=== PATIENT | male | born 1985 | race Caucasian/White ===

== ENCOUNTER 2019-05-16 17:07 | Emergency (ER) | payer OTHER ==
[~2019-05-16] VITALS: Ht 188 cm; Wt 99.8 kg
--- NOTE | 2019-05-16 17:11 | NUR ---
ED Nurse Note: pt not in wr
--- NOTE | 2019-05-16 17:20 | NUR ---
ED Nurse Note: pt walked in to ER from home due to difficulty to breath. pt aao x4 and ambulatory. skin clean and intact. mild anxiousness noted but following commands and no combative behavior noted. no acute distress noted but tachycardia noted. pt is in gown and on secured entrance monitor. pt denied taking drug or drinking alcohol.
[2019-05-16 17:26] VITALS: BP 117/57
--- NOTE | 2019-05-16 17:42 | NUR ---
ED Nurse Note: ERPA at bedside.
--- NOTE | 2019-05-16 17:56 | NUR ---
ED Nurse Note: x-ray at bedside.
--- NOTE | 2019-05-16 18:01 | Emergency Room Report ---
History of Present Illness General Chief Complaint: Upper Respiratory Illness Source: Patient Present Illness HPI 33-year-old male presents to the emergency department complaining of shortness of breath, intermittent 5/10 in severity chest pain and cough with sputum production x2 days. Patient denies fevers or chills. Patient denies significant past medical history. Patient denies recent travel but he does report some ill contacts. Patient reports that he recently got over having upper respiratory infection. Patient reports taking deep breaths on occasion will aggravate his symptoms. He is also reporting dizziness at this time. He denies palpitations. He reports sore throat 5/10 in severity. Denies any other associated symptoms. He denies hx of illicit drug use. Allergies: Coded Allergies: No Known Allergies (Unverified , 05/16/19) Patient History Past Medical History: see triage record Past Surgical History: none Pertinent Family History: none Reviewed Nursing Documentation: PMH: Agreed; PSxH: Agreed Nursing Documentation-PMH Past Medical History: No History, Except For Review of Systems All Other Systems: negative except mentioned in HPI Physical Exam Vital Signs Date Time Temp Pulse Resp B/P (MAP) Pulse Ox O2 Delivery O2 Flow Rate FiO2 05/16/19 17:16 97.3 128 22 136/89 (105) 98 Room Air Sp02 EP Interpretation: reviewed, normal General Appearance: alert, GCS 15, non-toxic, mild distress Head: normocephalic, atraumatic Eyes: bilateral eye normal inspection, bilateral eye PERRL ENT: hearing grossly normal, normal pharynx, normal voice, uvula midline, moist mucus membranes Neck: full range of motion Respiratory: chest non-tender, lungs clear, normal breath sounds, no respiratory distress, no accessory muscle use, no wheezing, speaking full sentences Cardiovascular #1: regular rate, rhythm, no edema, tachycardia Gastrointestinal: non tender, soft Musculoskeletal: back normal, normal range of motion, gait/station normal, non- tender Neurologic: alert, motor strength/tone normal, oriented x3, sensory intact, responsive, speech normal Psychiatric: judgement/insight normal, anxious Skin: normal color, diaphoresis Medical Decision Making PA Attestation Dr. Zarate is my supervising Physician whom patient management has been discussed with. Diagnostic Impression: Primary Impression: Dyspnea Qualified Codes: R06.00 - Dyspnea, unspecified Additional Impression: Tachycardia ER Course 33-year-old male presents to the emergency department complaining of shortness of breath, intermittent chest pain and cough with sputum production x2 days. Patient denies fevers or chills. Patient denies significant past medical history. Patient denies recent travel but he does report some ill contacts. Patient reports that he recently got over having upper respiratory infection. Patient reports taking deep breaths on occasion will aggravate his symptoms. He is also reporting dizziness at this time. He denies palpitations. He reports sore throat 5/10 in severity. Denies any other associated symptoms. Ddx considered but are not limited to [place], pneumonia, contusion, costochondritis , PE, ACS, Shoulder strain, Chest wall contusion. aortic dissection. Vital signs: Tachycardia otherwise remaining VS are WNL, pt. is afebrile H&PE are most consistent with possible anxiety attack, due to abnormal VS and pt. anxious appearance will r/o NJ/PE ORDERS: - EK Sinus tach. No ST changes -CBC: WNL -CMP: WNL -Troponin: WNL - D-Dimer: WNL - CXR: WNL ED INTERVENTIONS: - PT. placed on cardiac monitoring. -Ativan 0.5 IV re-assessment pt. reports his symptoms have resolved. NAD, non-toxic in appearance. Pt. stable for d/c, He is given strict ED return precautions and he verbalizes his understanding and agreement. DISCHARGE: At this time pt. is stable for d/c to home. Will provide printed patient care instructions, and any necessary prescriptions. Care plan and follow up instructions have been discussed with the patient prior to discharge. Labs Test 05/16/19 18:00 White Blood Count 8.0 K/UL (4.8-10.8) Red Blood Count 5.78 M/UL (4.70-6.10) Hemoglobin 16.7 G/DL (14.2-18.0) Hematocrit 47.1 % (42.0-52.0) Mean Corpuscular Volume 81 FL (80-99) Mean Corpuscular Hemoglobin 28.8 PG (27.0-31.0) Mean Corpuscular Hemoglobin Concent 35.3 G/DL (32.0-36.0) Red Cell Distribution Width 10.7 % (11.6-14.8) Platelet Count 296 K/UL (150-450) Mean Platelet Volume 5.4 FL (6.5-10.1) Neutrophils (%) (Auto) 54.3 % (45.0-75.0) Lymphocytes (%) (Auto) 34.7 % (20.0-45.0) Monocytes (%) (Auto) 6.7 % (1.0-10.0) Eosinophils (%) (Auto) 2.9 % (0.0-3.0) Basophils (%) (Auto) 1.3 % (0.0-2.0) D-Dimer < 0.19 mg/L FEU Sodium Level 138 MMOL/L (136-145) Potassium Level 3.2 MMOL/L (3.5-5.1) Chloride Level 102 MMOL/L (98-107) Carbon Dioxide Level 31 MMOL/L (21-32) Anion Gap 5 mmol/L (5-15) Blood Urea Nitrogen 12 mg/dL (7-18) Creatinine 1.1 MG/DL (0.55-1.30) Estimat Glomerular Filtration Rate > 60 mL/min (>60) Glucose Level 118 MG/DL (74-106) Calcium Level 9.0 MG/DL (8.5-10.1) Total Bilirubin 0.6 MG/DL (0.2-1.0) Aspartate Amino Transf (AST/SGOT) 21 U/L (15-37) Alanine Aminotransferase (ALT/SGPT) 41 U/L (12-78) Alkaline Phosphatase 53 U/L (46-116) Troponin I 0.001 ng/mL (0.000-0.056) Total Protein 8.2 G/DL (6.4-8.2) Albumin 4.4 G/DL (3.4-5.0) Globulin 3.8 g/dL Albumin/Globulin Ratio 1.2 (1.0-2.7) Urine Opiates Screen Negative (NEGATIVE) Urine Barbiturates Screen Negative (NEGATIVE) Phencyclidine (PCP) Screen Negative (NEGATIVE) Urine Amphetamines Screen Negative (NEGATIVE) Urine Benzodiazepines Screen Negative (NEGATIVE) Urine Cocaine Screen Negative (NEGATIVE) Urine Marijuana (THC) Screen Negative (NEGATIVE) Last Vital Signs Date Time Temp Pulse Resp B/P (MAP) Pulse Ox O2 Delivery O2 Flow Rate FiO2 05/16/19 17:26 97.3 128 22 117/57 98 Room Air Status: improved Disposition: HOME, SELF-CARE Condition: Stable Scripts No Active Prescriptions or Reported Meds Referrals: NOT CHOSEN IPA/MD,REFERRING (PCP) Patient Instructions: Generalized Anxiety Disorder Additional Instructions: Take medications as directed. Follow up with a Primary Care Provider in 3-5 days, even if your symptoms have resolved. Return sooner to ED if new symptoms occur, or current symptoms become worse. - Please note that this Emergency Department Report was dictated using [employer] technology software, occasionally this can lead to erroneous entry secondary to interpretation by the dictation equipment. Oralia Carter May 16, 2019 18:01
--- NOTE | 2019-05-16 18:01 | NUR ---
ED Nurse Note: blood work sent to lab.
[2019-05-16 18:21] LABS: BASOPHILS % (AUTO) 1.3 % (0.0-2.0); EOSINOPHILS % (AUTO) 2.9 % (0.0-3.0); HEMATOCRIT 47.1 % (42.0-52.0); HEMOGLOBIN 16.7 G/DL (14.2-18.0); LYMPHOCYTES % (AUTO) 34.7 % (20.0-45.0); MEAN CORPUSCULAR VOLUME 81 FL (80-99); MONOCYTES % (AUTO) 6.7 % (1.0-10.0); NEUTROPHILS % (AUTO) 54.3 % (45.0-75.0); PLATELET COUNT 296 K/UL (150-450); RED BLOOD COUNT 5.78 M/UL (4.70-6.10); RED CELL DISTRIBUTION WIDTH 10.7 % (11.6-14.8)
[2019-05-16 18:33] LABS: ANION GAP 5 mmol/L (5-15); BLOOD UREA NITROGEN 12 mg/dL (7-18); CARBON DIOXIDE 31 MMOL/L (21-32); CHLORIDE 102 MMOL/L (98-107); CREATININE 1.1 MG/DL (0.55-1.30); POTASSIUM 3.2 MMOL/L (3.5-5.1); SODIUM 138 MMOL/L (136-145)
[2019-05-16 18:38] LABS: ALANINE AMINOTRANSFERASE 41 U/L (12-78); ALBUMIN 4.4 G/DL (3.4-5.0); ALBUMIN/GLOBULIN RATIO 1.2 (1.0-2.7); ALKALINE PHOSPHATASE 53 U/L (46-116); ASPARTATE AMINO TRANSFERASE 21 U/L (15-37); BILIRUBIN,TOTAL 0.6 MG/DL (0.2-1.0)
--- NOTE | 2019-05-16 18:44 | Diagnostic Imaging Report ---
Indication: Cough Technique: One view of the chest Comparison: Findings: Lungs and pleural spaces are clear. Heart size is normal. No significant interim change Impression: No acute process This agrees with the preliminary interpretation provided overnight by [facility] service.
--- NOTE | 2019-05-16 18:56 | NUR ---
HAND-OFF: Report given to CHRISTOPHER Silverio.
--- NOTE | 2019-05-16 18:57 | NUR ---
ED Nurse Note: Report received from CHRISTOPHER Wade. pt in bed, no acute distress is noted.
[2019-05-16] MEDS ORDERED: LORazepam Inj 2mg/ml 1ml IV ONE (19:30)
[2019-05-16 20:13] VITALS: BP 110/64
--- NOTE | 2019-05-16 20:13 | NUR ---
ER DISCHARGE NOTE: Patient is cleared to be discharged per ERMD, pt is aox4, on room air, with stable vital signs. pt was given dc instructions, pt was able to verbalize understanding, pt id band and iv site removed without complications. pt is able to ambulate with steady gait. pt took all belongings.
--- NOTE | 2019-05-17 10:45 | Cardiology Report ---
APPROVED REPORT EKG Measurement Heart [id number] Sinus tachycardia Left axis deviation Abnormal ECG
== END 2019-05-16 20:13 | disposition home or self-care (01) ==
LOC: EMR 17:28
DX: R06.00 Dyspnea, unspecified (principal); R00.0 Tachycardia, unspecified
CPT/HCPCS: 36415; 71045; 80053; 80307; 84484; 85025; 85379; 93005; 96361; 96374; 99284